=== PATIENT | female | born 1980 | race American Indian/Alaskan Native ===

== ENCOUNTER 2019-03-10 14:12 | Emergency (ER) | payer OTHER ==
--- NOTE | 2019-03-10 14:50 | Emergency Department Report ---
Chief Complaint: Vaginal Bleeding Stated Complaint: POSS MISCARRIAGE/LEFT EYE SWOLLEN Time Seen by Provider: 03/10/19 14:47 - HPI History of Present Illness: Pt states she took a test which was negative thinks she had "a miscarriage" on 03/06/19 states she has vaginal bleeding with clots, back and suprapubic cramping, urinary frequency no dysuria /P:3/A:5 No PMHx no medications on daily basis (+) smoker (+) marijuana no drug use MSE screening note: Focused history and physical exam performed. Due to findings the following was ordered: lab, UA, hcg quant ED Disposition for MSE Condition: Stable
[2019-03-10 15:18] LABS: Basophils % (Auto) 0.3 % (0.0-1.8); Eosinophils # (Auto) 0.1 K/mm3 (0.0-0.4); Eosinophils % (Auto) 1.4 % (0.0-4.3); Hematocrit 38.5 % (30.3-42.9); Hemoglobin 13.2 gm/dl (10.1-14.3); Lymphocytes # (Auto) 1.7 K/mm3 (1.2-5.4); Lymphocytes % (Auto) 16.4 % (13.4-35.0); Mean Corpuscular HGB Conc 34 % (30-34); Mean Corpuscular Volume 94 fl (79-97); Monocytes # (Auto) 0.8 K/mm3 (0.0-0.8); Monocytes % (Auto) 8.4 % (0.0-7.3); Platelet Count 360 K/mm3 (140-440); Red Blood Count 4.11 M/mm3 (3.65-5.03); Red Cell Distribution Width 14.2 % (13.2-15.2)
[2019-03-10 15:39] LABS: Bilirubin,Urine NEG (Negative); Blood,Urine SM (Negative); Color,Urine Yellow (Yellow); Mucus,Urine FEW /HPF; Protein,Urine <15 mg/dL mg/dL (Negative); Urobilinogen,Urine < 2.0 mg/dL (<2.0)
--- NOTE | 2019-03-10 17:30 | Emergency Department Report ---
ED Female HPI - General Chief complaint: Vaginal Bleeding Stated complaint: POSS MISCARRIAGE/LEFT EYE SWOLLEN Time Seen by Provider: 03/10/19 14:47 Source: patient Mode of arrival: Ambulatory Limitations: No Limitations - History of Present Illness Initial comments: This is a 38-year-old female presents CD, complaining of irregular vaginal bleeding. Patient states she had a cycle twice this month. Patient states that she is not sure she's . She denies abdominal pain, nausea, vomiting, fever, dizziness or diarrhea. - Related Data Previous Rx's Medication Instructions Recorded Last Taken Type Famotidine [Pepcid] 10 mg PO BID #28 tablet 01/23/14 Unknown Rx Promethazine [Phenergan] 25 mg PO Q6H PRN #12 tablet 01/23/14 Unknown Rx Ibuprofen [Motrin] 800 mg PO Q8HR #30 tablet 03/10/19 Unknown Rx Sulfamethoxazole/Trimethoprim 1 each PO BID #20 tablet 03/10/19 Unknown Rx [Bactrim DS TAB] Allergies Allergy/AdvReac Type Severity Reaction Status Date / Time No Known Allergies Allergy Verified 03/10/19 14:27 ED Review of Systems ROS: Stated complaint: POSS MISCARRIAGE/LEFT EYE SWOLLEN Other details as noted in HPI Comment: All other systems reviewed and negative ED Past Medical Hx - Past Medical History Hx Hypertension: Yes - Surgical History Additional Surgical History: ectopic - Social History Smoking Status: Never Smoker Substance Use Type: None - Medications Home Medications: Home Medications Medication Instructions Recorded Confirmed Last Taken Type Famotidine [Pepcid] 10 mg PO BID #28 tablet 01/23/14 Unknown Rx Promethazine [Phenergan] 25 mg PO Q6H PRN #12 tablet 01/23/14 Unknown Rx Ibuprofen [Motrin] 800 mg PO Q8HR #30 tablet 03/10/19 Unknown Rx Sulfamethoxazole/Trimethoprim 1 each PO BID #20 tablet 03/10/19 Unknown Rx [Bactrim DS TAB] ED Physical Exam - General Limitations: No Limitations General appearance: alert, in no apparent distress - Head Head exam: Present: atraumatic, normocephalic - Eye Eye exam: Present: normal appearance Pupils: Present: normal accommodation - ENT ENT exam: Present: mucous membranes moist - Neck Neck exam: Present: normal inspection - Respiratory Respiratory exam: Present: normal lung sounds bilaterally. Absent: respiratory distress - Cardiovascular Cardiovascular Exam: Present: regular rate, normal rhythm. Absent: systolic murmur, diastolic murmur, rubs, gallop - GI/Abdominal GI/Abdominal exam: Present: soft, normal bowel sounds. Absent: distended, tenderness, guarding, rebound - Extremities Exam Extremities exam: Present: normal inspection, full ROM. Absent: tenderness - Back Exam Back exam: Present: normal inspection, full ROM. Absent: tenderness, CVA tenderness (R), CVA tenderness (L) - Neurological Exam Neurological exam: Present: alert, oriented X3 - Psychiatric Psychiatric exam: Present: normal affect, normal mood - Skin Skin exam: Present: warm, dry, intact, normal color. Absent: rash ED Course Vital Signs 03/10/19 14:57 Temperature 98.4 F Pulse Rate 80 Respiratory 18 Rate Blood Pressure 144/98 O2 Sat by Pulse 100 Oximetry ED Medical Decision Making - Lab Data Result diagrams: 03/10/19 15:10 Laboratory Last Values WBC 10.1 K/mm3 (4.5-11.0) 03/10/19 15:10 RBC 4.11 M/mm3 (3.65-5.03) 03/10/19 15:10 Hgb 13.2 gm/dl (10.1-14.3) 03/10/19 15:10 Hct 38.5 % (30.3-42.9) 03/10/19 15:10 MCV 94 fl (79-97) 03/10/19 15:10 MCH 32 pg (28-32) 03/10/19 15:10 MCHC 34 % (30-34) 03/10/19 15:10 RDW 14.2 % (13.2-15.2) 03/10/19 15:10 Plt Count 360 K/mm3 (140-440) 03/10/19 15:10 Lymph % (Auto) 16.4 % (13.4-35.0) 03/10/19 15:10 [place] % (Auto) 8.4 % (0.0-7.3) H 03/10/19 15:10 Eos % (Auto) 1.4 % (0.0-4.3) 03/10/19 15:10 Baso % (Auto) 0.3 % (0.0-1.8) 03/10/19 15:10 Lymph # 1.7 K/mm3 (1.2-5.4) 03/10/19 15:10 [place] # 0.8 K/mm3 (0.0-0.8) 03/10/19 15:10 Eos # 0.1 K/mm3 (0.0-0.4) 03/10/19 15:10 Baso # 0.0 K/mm3 (0.0-0.1) 03/10/19 15:10 Seg Neutrophils % 73.5 % (40.0-70.0) H 03/10/19 15:10 Seg Neutrophils # 7.4 K/mm3 (1.8-7.7) 03/10/19 15:10 HCG, Quant < 2 mIU/mL (0-4) 03/10/19 15:10 Urine Color Yellow (Yellow) 03/10/19 15:14 Urine Turbidity Clear (Clear) 03/10/19 15:14 Urine pH 5.0 (5.0-7.0) 03/10/19 15:14 Ur Specific [place] 1.021 (1.003-1.030) 03/10/19 15:14 Urine Protein <15 mg/dl mg/dL (Negative) 03/10/19 15:14 Urine Glucose (UA) Neg mg/dL (Negative) 03/10/19 15:14 Urine Ketones Neg mg/dL (Negative) 03/10/19 15:14 Urine Blood Sm (Negative) 03/10/19 15:14 Urine Nitrite Neg (Negative) 03/10/19 15:14 Urine Bilirubin Neg (Negative) 03/10/19 15:14 Urine Urobilinogen < 2.0 mg/dL (<2.0) 03/10/19 15:14 Ur Leukocyte Esterase Sm (Negative) 03/10/19 15:14 Urine WBC (Auto) 18.0 /HPF (0.0-6.0) H 03/10/19 15:14 Urine RBC (Auto) 7.0 /HPF (0.0-6.0) 03/10/19 15:14 U Epithel Cells (Auto) 1.0 /HPF (0-13.0) 03/10/19 15:14 Urine Mucus Few /HPF 03/10/19 15:14 - Medical Decision Making 38 female presents to the ED with recurrent menstrual cycle Discussed with the patient that She actually did not have a miscarriage as a test is negative. Discussed the patient will follow-up with [facility]. Referrals given. Patient is in no acute distress she agrees with decision and understands all instructions. Vital signs are normal she is in no acute distress Critical care attestation.: If time is entered above; I have spent that time in minutes in the direct care of this critically ill patient, excluding procedure time. ED Disposition Clinical Impression: Cystitis, Menstrual cramp Disposition: TO HOME OR SELFCARE Is pt being admited?: No Does the pt Need Aspirin: No Condition: Stable Instructions: Urinary Tract Infection in Women (ED), Menorrhagia (ED) Additional Instructions: Make sure to follow up with the primary care physician as discussed. Take all your medications as you've been prescribed. If you have any worsening symptoms or develop new symptoms please return to ED immediately. Prescriptions: Sulfamethoxazole/Trimethoprim [Bactrim DS TAB] 1 each PO BID #20 tablet Ibuprofen [Motrin] 800 mg PO Q8HR #30 tablet Referrals: IVETH MARTINEZ MD [Primary Care Provider] - 3-5 Days Forms: Accompanied Note, Work/School Release Form(ED) Time of Disposition: 17:36
[2019-03-11 19:13] VITALS: BP 144/98
== END 2019-03-10 17:55 | disposition home or self-care (01) ==
LOC: ED 14:12
DX: N92.6 Irregular menstruation, unspecified (principal); I10 Essential (primary) hypertension; N30.90 Cystitis, unspecified without hematuria
CPT/HCPCS: 36415; 81001; 84702; 85025; 99283